=== PATIENT | female | born 1970 | race Caucasian/White ===

== ENCOUNTER → 2019-12-26 12:58 | Outpatient (CLI) | payer BC, SELFPAY ==
[2019-12-26 13:37] LABS: Influenza A - CEPHEID Flu A NEGATIVE (NEGATIVE); Influenza B - CEPHEID Flu B NEGATIVE (NEGATIVE)
== END ==
PROVIDERS: Visit Provider Physician Assistant
DX: R68.89 Other general symptoms and signs (principal)
CPT/HCPCS: 87502

== ENCOUNTER 2021-10-28 09:22 | Emergency (ER) | payer OTHER, SELFPAY ==
[2021-10-28] VITALS (10 sets, daily range): BP systolic 121–140; BP diastolic 59–79; PULSE 65–88; RESP 16; TEMP 37.1; O2SAT 92–99; BMI 43.4
--- NOTE | 2021-10-28 10:16 | PC.NURSE ---
CSM intact, movement limited by pain. new urinary incontinence when I stand up but no incontinence when laying down
[2021-10-28] MEDS: KETOROLAC 30 MG/ML VIAL IV (10:54)
--- NOTE | 2021-10-28 10:57 | ED_ITS ---
HPI - Back Pain/Injury General Chief Complaint: Back Pain/Injury Stated Complaint: back pain Time Seen by Provider: 10/28/21 10:52 Source: EMS Mode of arrival: EMS Limitations: no limitations History of Present Illness HPI Narrative: This is a 50-year-old female with known low back pain who had acute worsening. 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 She has a little bit at radiation to her left buttock. She was seen at [facility] had a Percocet and was discharged home. Patient states that when she went to stand to get a wheelchair at [facility] she had urinary incontinence. She states that she is not having incontinence when she lays. Patient states she does not have any new numbness or tingling. She does not have any saddle anesthesia. She has not any fecal incontinence. She had not picked up prescription for Percocet yet so did not take any overnight. She takes medicati on for hypothyroid. She had L5 fusion in approximately 2008 at [facility]. She does not follow regularly with her back surgeon since then. Fevers. No new weakness in her lower extremities. Related Data Home Medications Medication Instructions Recorded Confirmed bupropion HCl 150 mg tablet,12 hr 150 mg PO DAILY 12/26/19 10/28/21 sustained-release (Wellbutrin SR) escitalopram oxalate 10 mg tablet 10 mg PO DAILY 12/26/19 10/28/21 levothyroxine 50 mcg capsule 50 mcg PO DAILY 12/26/19 10/28/21 meclizine 25 mg tablet 25 mg PO Q8HR PRN 12/26/19 10/28/21 Previous Rx's Medication Instructions Recorded prednisone 50 mg tablet 50 mg PO DAILY #5 tab 10/28/21 Allergies Allergy/AdvReac Type Severity Reaction Status Date / Time hydrocodone Allergy Intermediate ITCHING Verified 10/28/21 10:17 topiramate [From Topamax] Allergy Unknown Verified 10/28/21 09:38 prednisone AdvReac Intermediate Agitated Verified 10/28/21 10:17 Review of Systems Review of Systems ROS Unobtainable: All systems reviewed & are unremarkable except as noted in HPI and below Patient History Medical History Ankle pain (~2019) Anxiety Depression Foot pain (~2016) Headache Hypothyroidism Migraines Shoulder pain (~2015) Sinusitis Vertigo (~10/2019) Surgical History Anesthesia History of ankle surgery (~1989) History of back surgery (~2007) History of section (~1991) History of endometrial ablation (~11/2018) Family History (Updated 12/29/19 @ 21:21 by Natasha Marie) Father Diabetes mellitus History of heart disease Hypertension Mental health problem Mother Cancer Brother Mental health problem Sister Diabetes mellitus History of heart disease Hypertension Mental health problem Grandfather Diabetes mellitus Grandmother History of heart disease Grandfather Cancer Diabetes mellitus Social History Smoking Status: Former smoker Smoking Status: Former smoker alcohol intake frequency: other Substance Use Type: does not use Exam Narrative Exam Narrative: GENERAL: Alert and oriented x three, obese female in [id number] distress. HEENT: Head normocephalic, atraumatic, EOMI, pupils reactive, face symmetric, moist mucous membranes NECK: Supple, full range of motion CARDIOVASCULAR: Regular rate and rhythm without murmurs, rubs or gallops. RESPIRATORY: Breath sounds equal bilaterally, no wheezes rales or rhonchi. ABDOMEN: Soft, nontender. Normoactive bowel sounds all 4 quadrants. No guarding or rebound, rigidity, no mass : No CVA tenderness BACK: No cervical, thoracic or vertebral point tenderness. Patient does have tenderness over L4-L5. She has decreased range of motion. Patient's gait is not tested. Rectal exam is present. No saddle anesthesia. Patient was on bedpan and had urine in palmer prior to evaluation. Muscle strength is 5/5 in lower extremities, DTRs are 2/4 and lower extremities. Dorsalis pedis and tibialis pulses are 2+ and lower extremities. Sensation is intact in the lower extremities. EXTREMITIES: Normal range of motion, no clubbing or edema. Neurovascularly intact NEUROLOGICAL: Cranial nerves II through XII grossly intact. Moving all extremities SKIN: Warm, dry, no petechiae, no rashes or lesions. Initial Vital Signs Initial Vital Signs: Vital Signs Pulse Rate 76 10/28/21 09:26 Pulse Oximetry 98 10/28/21 09:26 Course Orders Ordered: ED Orders 10/28/21 11:13 MR lumbar spine wo con Stat Discontinued Medications Diazepam (Diazepam 5 Mg Tablet) 10 mg PO NOW ONE Stop: 10/28/21 11:14 Last Admin: 10/28/21 11:19 Dose: 10 mg Documented by: CHAYITO Ketorolac Tromethamine (Ketorolac 30 Mg/Ml Vial) 30 mg IM NOW ONE Stop: 10/28/21 10:25 Last Admin: 10/28/21 11:25 Dose: Not Given Documented by: OFELIA Ketorolac Tromethamine (Ketorolac 30 Mg/Ml Vial) 30 mg IV NOW ONE Stop: 10/28/21 10:54 Last Admin: 10/28/21 10:54 Dose: 30 mg Documented by: OFELIA Reevaluation(s) Reevaluation #1: Patient pain is controlled. Reviewed her MRI results today. She saw Dr. Holbrook at [facility] but that was in 2008 she is comfortable following up with our orthopedic surgeries here locally if that was required. Time: 12:00 Reevaluation #2: Patient pain so control. Her MRI results were reviewed with Orthopedic surgery and Dr. Barroso was consulted. Plan for follow-up in the next week. Patient states she thinks she might have not done well with prednisone in the past but she is willing to try it. We discussed she can stop at any time if it is bothering her if she changes her mind. Time: 13:06 Consultations Consultation #1: Dr. Gomes consulted via [facility]. MRI reviewed. Patient's HPI and findings on exam. Plan for outpatient follow-up. Time: 13:07 Vital Signs Vital signs: Vital Signs - 8 hr 10/28/21 11:50 10/28/21 11:51 10/28/21 12:00 Pulse Rate 65 68 80 Respiratory Rate 16 Blood Pressure 134/63 121/59 L Pulse Oximetry 94 96 95 10/28/21 12:30 10/28/21 13:00 Pulse Rate 77 88 Respiratory Rate Blood Pressure 140/64 123/65 Pulse Oximetry 92 96 MDM - Back Pain/Injury Lab Data Labs: Urine Dip Bedside Urine Glucose Negative Bedside Urine Bilirubin + 1 Bedside Urine Ketone - Negative Urine Specific [place] 1.010 Bedside Urine Occult Blood - Negative Bedside Urine pH 7.0 Bedside Urine Protein - Negative Bedside Urine Urobilinogen - Negative Bedside Urine Nitrite - Negative Bedside Urine Leukocytes - Negative Esterase Imaging Data MRI Lumbar spine: Radiologist's Impression: Launch?[address] [address] Magnetic Resonance Report Signed Patient: Marissa Sanchez MR#: [id number] : 1970 Acct:[id number] Age/Sex: 50 / F Date of Service: 10/28/21 Loc: ED Accession Number: [id number] ?? Procedure: MR lumbar spine wo con Ordering Provider: Regine Hallman D.O. PROCEDURE:? MR LUMBAR SPINE WO CON ? INDICATIONS:? back pain, incontinence standing, L5 fusion 2008([facility]) ? TECHNIQUE:? Noncontrast sagittal T1 spin echo and T2 fast echo, sagittal STIR, axial T1 and T2 fast spin echo through the lumbar spine.? In cases with scoliosis, additional coronal T2 fast spin echo may be performed.? ? COMPARISON:? None. ? FINDINGS:? Image quality:? Excellent.? ? Alignment and Curvature:? No plain films are available for comparison, for numbering purposes.? Thus, for the purposes of this examination, 5 lumbar type vertebral bodies will be presumed, as denoted on the montage panel.? This should be confirmed and correlated with plain films, prior to any lumbar spinal intervention.? There is mild grade 1 retrolisthesis of L2 on L3, L3 on L4, and L4 on L5. ? Bone Marrow:? Marrow is of normal overall signal.? No acute vertebral body compression fractures.? Anterior fusion hardware at L5-S1 is present.? Moderate reactive signal within the endplates adjacent to the L4-L5 intervertebral disc.? Mild reactive signal within the endplates adjacent to the L2-L3 and L3-L4 intervertebral discs.? Right L5-S1 hemilaminotomy. ? Spinal Cord:? Conus medullaris terminates at the upper L2 level.? Visualized cord demonstrates normal signal and size.? ? Paraspinous Soft Tissues:? No paravertebral masses.? ? T12-L1:? Normal appearance.? ? L1-L2:? Normal appearance.? ? L2-L3:? Moderate disc height loss and desiccation.? Moderate diffuse disc bulge.? Mild facet and ligamentum flavum hypertrophy.? Mild epidural lipomatosis.? Mild canal stenosis.? Mild left greater than right foraminal stenosis. ? L3-L4:? Moderate disc desiccation.? Mild disc height loss and diffuse disc bulge with small superimposed broad-based left paracentral protrusion.? Mild facet and ligamentum flavum hypertrophy.? Mild epidural lipomatosis.? Mild canal stenosis.? Mild bilateral foraminal stenosis. ? L4-L5:? Severe disc height loss and desiccation.? Mild diffuse disc bulge.? Mild facet and ligamentum flavum hypertrophy.? Mild canal stenosis.? Mild bilateral foraminal stenosis. ? L5-S1:? Anterior fusion.? Interbody device placement.? Mild residual disc osteophyte complex with small superimposed right paracentral protrusion.? Mild canal stenosis.? Mild bilateral foraminal stenosis. ? IMPRESSION:? 1. Postsurgical sequelae. 2. Multilevel degenerative disc and facet disease, as well as ligamentum flavum hypertrophy and epidural lipomatosis. 3. Mild multilevel canal and foraminal stenoses. 4. No acute process.? ? Dictated by: Julio Holloway M.D. on 10/28/2021 at 11:48 ? ? Approved by: Julio Holloway M.D. on 10/28/2021 at 11:51 MDM Narrative Medical decision making narrative: This is a 42-year-old female with chronic back issues with fusion of L5 around 2008 at [place] with Dr. Prince anjel Hernandez. 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 Her only red flag symptom is that she has had urinary incontinence only upon standing. If she is laying she does not she has not had any other new paresthesias, weakness, fecal incontinence. Patient has not been taking any pain medications since she was seen at [facility] yesterday. She does have rectal tone on exam. Her other exam findings are reassuring MRI was ordered she has degenerative changes but no severe canal stenosis, no significant impingement appreciated. Case was discussed with Orthopedic surgery and plan for patient to follow-up. Patient prefers to follow locally as she is quite far out from her prior surgery. We did discuss return precautions and patient feels comfortable with this. Discharge Plan Departure Patient Disposition: Home Clinical Impression: Low back pain Instructions: DI for Low Back Pain Activity Restrictions/Additional Instructions: Your case was discussed with Orthopedic surgery. Please call to follow up with Dr. Hernandez. Call for an appointment later today. Continue with the Percocet that you have been prescribed. You may take steroids once daily until gone. Prescription sent to [facility] in [place]. Please return for fevers, rapidly worsening pain, new changes with urination, incontinence, new numbness, tingling or weakness or other new or concerning symptoms. Prescriptions: New prednisone 50 mg tablet 50 mg PO DAILY Qty: 5 0RF No Action bupropion HCl [Wellbutrin SR] 150 mg tablet sustained-release 12 hr 150 mg PO DAILY 0RF escitalopram oxalate 10 mg tablet 10 mg PO DAILY 0RF levothyroxine 50 mcg capsule 50 mcg PO DAILY 0RF meclizine 25 mg tablet 25 mg PO Q8HR PRN (Reason: Vertigo) 0RF Referrals: Robert Gomes MD [Physician] - Lyubov Pena MD [Primary Care Provider] -
--- NOTE | 2021-10-28 11:13 | DI.MRI.S_ITS ---
PROCEDURE: MR LUMBAR SPINE WO CON INDICATIONS: back pain, incontinence standing, L5 fusion 2008([facility]) TECHNIQUE: Noncontrast sagittal T1 spin echo and T2 fast echo, sagittal STIR, axial T1 and T2 fast spin echo through the lumbar spine. In cases with scoliosis, additional coronal T2 fast spin echo may be performed. COMPARISON: None. FINDINGS: Image quality: Excellent. Alignment and Curvature: No plain films are available for comparison, for numbering purposes. Thus, for the purposes of this examination, 5 lumbar type vertebral bodies will be presumed, as denoted on the montage panel. This should be confirmed and correlated with plain films, prior to any lumbar spinal intervention. There is mild grade 1 retrolisthesis of L2 on L3, L3 on L4, and L4 on L5. Bone Marrow: Marrow is of normal overall signal. No acute vertebral body compression fractures. Anterior fusion hardware at L5-S1 is present. Moderate reactive signal within the endplates adjacent to the L4-L5 intervertebral disc. Mild reactive signal within the endplates adjacent to the L2-L3 and L3-L4 intervertebral discs. Right L5-S1 hemilaminotomy. Spinal Cord: Conus medullaris terminates at the upper L2 level. Visualized cord demonstrates normal signal and size. Paraspinous Soft Tissues: No paravertebral masses. T12-L1: Normal appearance. L1-L2: Normal appearance. L2-L3: Moderate disc height loss and desiccation. Moderate diffuse disc bulge. Mild facet and ligamentum flavum hypertrophy. Mild epidural lipomatosis. Mild canal stenosis. Mild left greater than right foraminal stenosis. L3-L4: Moderate disc desiccation. Mild disc height loss and diffuse disc bulge with small superimposed broad-based left paracentral protrusion. Mild facet and ligamentum flavum hypertrophy. Mild epidural lipomatosis. Mild canal stenosis. Mild bilateral foraminal stenosis. L4-L5: Severe disc height loss and desiccation. Mild diffuse disc bulge. Mild facet and ligamentum flavum hypertrophy. Mild canal stenosis. Mild bilateral foraminal stenosis. L5-S1: Anterior fusion. Interbody device placement. Mild residual disc osteophyte complex with small superimposed right paracentral protrusion. Mild canal stenosis. Mild bilateral foraminal stenosis. IMPRESSION: 1. Postsurgical sequelae. 2. Multilevel degenerative disc and facet disease, as well as ligamentum flavum hypertrophy and epidural lipomatosis. 3. Mild multilevel canal and foraminal stenoses. 4. No acute process. Dictated by: Julio Holloway M.D. on 10/28/2021 at 11:48 Approved by: Julio Holloway M.D. on 10/28/2021 at 11:51
[2021-10-28] MEDS: diazePAM 5 MG TABLET 10 MG PO (11:19)
== END 2021-10-28 13:23 | disposition home or self-care (01) ==
PROVIDERS: Emergency Provider Emergency Medicine; PCP Family Medicine
DX: M54.50 Low back pain, unspecified (principal); R32 Unspecified urinary incontinence
CPT/HCPCS: 72148; 81003; 96374; 99284; J1885

== ENCOUNTER → 2021-11-12 07:29 | Outpatient (CLI) | payer OTHER, SELFPAY ==
--- NOTE | 2021-11-12 | DI.MG.S_ITS ---
BILATERAL DIGITAL SCREENING MAMMOGRAM 3D/2D WITH CAD: 11/12/2021 CLINICAL: Routine screening. Comparison is made to exams dated: 04/22/2020 mammogram and 12/04/2018 mammogram - [facility]. The tissue of both breasts is heterogeneously dense. This may lower the sensitivity of mammography. Current study was also evaluated with a Computer Aided Detection (CAD) system. No significant masses, calcifications, or other findings are seen in either breast. There has been no significant interval change. IMPRESSION: NEGATIVE There is no mammographic evidence of malignancy. A 1 year screening mammogram is recommended. This exam was interpreted at Station ID: [id number]. NOTE: For mammograms, a report in lay terms will be sent to the patient. Approximately 15% of breast malignancies will not be visualized mammographically. In the management of a palpable breast mass, a negative mammogram must not discourage biopsy of a clinically suspicious lesion. Electronically Signed By: Bogdan Cohen M.D., jr/albina:11/12/2021 10:46:25 letter sent: Normal Exam ACR BI-RADS Category 1: Negative [id number]
== END ==
PROVIDERS: PCP Family Medicine; Referring Provider Family Medicine; Visit Provider Family Medicine
DX: Z12.31 Encounter for screening mammogram for malignant neoplasm of breast (principal)
CPT/HCPCS: 77063; 77067